=== PATIENT | male | born 1980 | race Hispanic/Latino ===

== ENCOUNTER 2018-03-19 17:55 | Inpatient (IN) | payer OTHER ==
[2018-03-19 18:30] VITALS: BMI 29.1
--- NOTE | 2018-03-19 19:47 | C.PDOC ---
History Of Present Illness 37 y/o male patient presents to the ER for alcohol detox. The patient reports his last drink was this morning and reports "feeling jittery". He admits to having a history of being A-Fib but states he is complaint with Eliquis and hypertension medication. The patient states he believes that drinking makes his medication effective. He denies any chest pain, SOB, dizziness, nausea or drug use. FOR ETOH DETOX. LAST DRINK THIS MORNING. HO AFIB, COMPLIANT W ELIQUIS AND HTN MED "BUT MY DRINKING MAKES THEM INEFFECTIVE". NO CP, SOB, DIZZY, NV. CO " FEELING JITTERY". DENIES OTHER DRUG USE EXAM NONTOXIC HEENT NO FASICULATIONS CV IRREG REG NO TREMOR CALM COOPERATIVE NO ACUTE INTOX Time Seen by Provider: 03/19/18 19:17 Chief Complaint (Nursing): Substance Abuse History Per: Patient History/Exam Limitations: no limitations Modifying Factor(s): Alcohol Recent travel outside of the [place]: No Past Medical History Reviewed: Historical Data, Nursing Documentation, Vital Signs Vital Signs: Last Vital Signs Temp 98.3 F 03/19/18 18:30 Pulse 111 H 03/19/18 18:30 Resp 20 03/19/18 18:30 BP 157/124 H 03/19/18 18:30 Pulse Ox 100 03/19/18 20:44 - Medical History PMH: Atrial Fibrillation, HTN Other Surgeries: Left knee surgery Family History: States: Unknown Family Hx - Social History Hx Alcohol Use: Yes Hx Substance Use: No - Immunization History Hx Tetanus Toxoid Vaccination: No Hx Influenza Vaccination: No Hx Pneumococcal Vaccination: No Review Of Systems Except As Marked, All Systems Reviewed And Found Negative. Constitutional: Negative for: Fever Cardiovascular: Negative for: Chest Pain Respiratory: Negative for: Shortness of Breath Gastrointestinal: Negative for: Nausea Neurological: Negative for: Dizziness Physical Exam - Physical Exam Appears: Well, Non-toxic, Toxic Skin: Normal Color, Warm, Dry Head: Atraumatic, Normacephalic Eye(s): bilateral: Normal Inspection, PERRL, EOMI Ear(s): Bilateral: Normal Oral Mucosa: Moist Neck: Normal ROM Chest: Symmetrical Cardiovascular: Rhythm Irregular (IRREGULARY REGULAR), No Murmur Respiratory: Normal Breath Sounds, No Rales, No Rhonchi, No Wheezing, Other ( NARD) Gastrointestinal/Abdominal: Bowel Sounds, Soft, No Tenderness Extremity: Normal ROM Extremity: Bilateral: Atraumatic, Normal Color And Temperature, Normal ROM Pulses: Left Radial: Normal, Right Radial: Normal Neurological/Psych: Oriented x3, Normal Speech Gait: Steady Other Neurological Findings: Other (calm, cooperative. No acute intoxication) ED Course And Treatment - Laboratory Results Result Diagrams: 03/19/18 20:20 03/19/18 20:20 O2 Sat by Pulse Oximetry: 100 (RA) Pulse Ox Interpretation: Normal Reevaluation Time: 20:43 Reassessment Condition: Improved (SP ATIVAN. PS FEELS BETTER. MED CLEAR FOR DETOX. RECOMMEND MEDICINE CONSULT PRN FOR FURTHER MANAGEMENT OF AFIB. CRISIS NOTIFIED) Medical Decision Making Medical Decision Making: Impression: 37 y/o male feeling jittery, drinking ETOH with medication and requesting alcohol detox Plan: --EKG --Alcohol Serum --CMP --Drug Screen --CBC --Chest X-ray --Ativan 1 mg IV --UA Disposition Counseled Patient/Family Regarding: Studies Performed, Diagnosis - Disposition Disposition: HOSPITALIZED Disposition Time: 20:52 Condition: STABLE Forms: [employer] (Georgian) - POA Present On Arrival: None - Clinical Impression Clinical Impression: Alcohol use disorder - PA / POOL SERVICER / Resident Statement MD/DO has reviewed & agrees with the documentation as recorded. - Scribe Statement The provider has reviewed the documentation as recorded by the Scribe (Mary Jane Hernandez) Decision To Admit - Pt Status Changed To: Hospital Disposition Of: Inpatient - Admit Certification Admit to Inpatient:: After my assessment, the patient will require hospitalization for at least two midnights. This is because of the severity of symptoms shown, intensity of services needed, and/or the medical risk in this patient being treated as an outpatient. - InPatient: Physician Admission Certification: I certify that this patient requires 2 or more midnights of care for the following reason:: SEE NOTE - . Bed Request Type: Detox Admitting Physician: Lucio Bonds Patient Diagnosis: Alcohol use disorder
[2018-03-19 20:31] LABS: URINE BILIRUBIN NEGATIVE (NEGATIVE); URINE BLOOD NEGATIVE (NEGATIVE); URINE CLARITY Clear (Clear); URINE COLOR Straw (YELLOW); URINE GLUCOSE (UA) NORMAL (Normal); URINE LEUKOCYTE ESTERASE NEG Leu/uL (Negative); URINE PROTEIN NEGATIVE (NEGATIVE); URINE UROBILINOGEN NORMAL mg/dL (0.2-1.0)
[2018-03-19 20:34] LABS: BASO % 0.6 % (0.0-2.0); EOS # 0.1 K/uL (0.0-0.7); EOS % 1.4 % (0.0-4.0); HEMOGLOBIN 14.8 g/dL (12.0-18.0); LYMPH # 1.4 K/uL (1.0-4.3); LYMPH % 17.5 % (20.0-40.0); MEAN CELL VOLUME 94.4 fL (80.0-94.0); MEAN CORPUSCULAR HEMOGLOBIN 33.2 pg (27.0-31.0); MEAN CORPUSCULAR HGB CONC 35.2 g/dL (33.0-37.0); MEAN PLATELET VOLUME 7.8 fL (7.2-11.7); MONO # 0.6 K/uL (0.0-0.8); MONO % 7.5 % (0.0-10.0); NEUT # 5.6 K/uL (1.8-7.0); NRBC % 0.1 % (0.0-2.0); RBC 4.46 Mil/uL (4.40-5.90); RED CELL DISTRIBUTION WIDTH 13.7 % (11.5-14.5); WHITE BLOOD COUNT 7.7 K/uL (4.8-10.8)
[2018-03-19 20:40] LABS: ALBUMIN 4.6 g/dL (3.5-5.0); ALT/SGPT 69 U/L (21-72); AST/SGOT 44 U/L (17-59); BLOOD UREA NITROGEN 7 mg/dL (9-20); CALCIUM 10.4 mg/dl (8.6-10.4); GFR AFRICAN-AMERICAN > 60; GFR NON-AFRICAN AMERICAN > 60
[2018-03-19 20:42] LABS: BARBITURATES, UR NEGATIVE (NEGATIVE); BENZODIAZEPINES, UR NEGATIVE (NEGATIVE); OPIATES, UR NEGATIVE (NEGATIVE); PHENCYCLIDINE, UR NEGATIVE (NEGATIVE)
--- NOTE | 2018-03-19 21:17 | PCM.BM ---
Treatment Plan Problems - Problems identified on initial assessmt potiential for autonomic instability related to alcohol withdrawal Date Initiated: 03/19/18 Time Initiated: 21:17 Assessment reference: NA Status: Active Treatment assets and liabiliti Patient Assests: educated, ADL independent, financial stabiity, cognitively intact Patient Liabilities: substance abuse, medical problems - Milieu Protocol Maintain good personal hygiene: daily Encourage regular showers, daily Remind patient to perform daily oral care, daily Assist patient to perform ADL's Maintain personal safety: every shift Educate patient to report safety concerns to staff, every shift Monitor environment for contraband/sharps Medication safety: Monitor for expected outcome, potential side effects: every shift, Assess barriers to learning: every shift, Assess readiness for medication education: every shift
--- NOTE | 2018-03-20 08:27 | RAD ---
Date of service: 03/19/2018 PROCEDURE: CHEST RADIOGRAPH, 1 VIEW HISTORY: Detox/Psy COMPARISON: None available. FINDINGS: LUNGS: The lungs are well inflated and clear. PLEURA: No pneumothorax or pleural fluid seen. CARDIOVASCULAR: Normal. OSSEOUS STRUCTURES: No significant abnormalities. VISUALIZED UPPER ABDOMEN: Normal. OTHER FINDINGS: None. IMPRESSION: No acute findings.
[2018-03-20] MEDS ORDERED: Ergocalciferol 50,000 Intl Units Cap PO SCH (10:30)
[2018-03-20] MEDS ORDERED: Multiple Vitamins Tab PO SCH (10:30)
--- NOTE | 2018-03-20 11:44 | PCM.PSYCH ---
Initial Psychiatric Evaluation - Initial Psychiatric Evaluation Type of Admission: Voluntary Legal Status: Capacity Chief Complaint (in patient's own words): "I feels tremulous" History of Present Illness and Precipitating Events: HPI: Patient is a 37 year old male employed, currently on medical leave, with 2 young children with history of hypertension, Atrial fibrillation who reports here for detox from alcohol abuse. He states he was on his way to [place] detox in [place], however decided to come here for detox since he has a history of Atrial fibrillation and thought he would need to be medically monitored during his detox. He states he was recently diagnosed with Atrial fibrillation 1 month ago by his PMD and was seen by a ship construction teacher near [place], [place]. He states he has a 20 year history of drinking alcohol, but started drinking heavily about 3 to 4 years ago. He states that he lost his job about 4 years ago , and he gradually began to drink more alcohol regularly. He states he experienced a lot of changes around that time as well including moving from [facility] to [facility], the of his first child. He states he drinks about 0.5 to 1 liter of whiskey and 12 cans of beer daily. His last drink was 2 days ago. He states he feels angry, guilty, nervous but also motivated to change. He denies feeling anxious or depressed. Denies thoughts of harming self or others. Denies feeling paranoid. Denies auditory or visual hallucinations. He denies prior history of seizures from alcohol withdrawal. Admits to feeling slightly tremulous currently. PMH: Hypertension, Atrial fibrillation Social history: Employed at [employer] in [place] ,currently on medical leave. Smokes 5 cigarettes/day, cut down from 1ppd. Drinks 1/2L-1L whiskey, 12 cans of beer daily. History of intermittent marijuana use years ago, not currently using. No other drug use. Family hx: Maternal grandfather, maternal uncle, paternal aunt and paternal uncle: Alcoholism. Denies mental illness. Meds: Bystolic 10mg BID, Eliquis 5mg BID Allergies: NKDA Current Medications: Active Medications Generic Name Dose Route Start Last Admin Trade Name Freq PRN Reason Stop Dose Admin Apixaban 2.5 mg 03/20/18 10:30 03/20/18 11:21 Eliquis PO 2.5 mg BID LYNN Administration Chlordiazepoxide 25 mg 03/20/18 12:00 03/20/18 11:21 Librium PO 03/24/18 11:59 25 mg Q6 LYNN Administration Taper Chlordiazepoxide 25 mg 03/20/18 10:21 Librium PO Q4H PRN Alcohol Withdrawal Clonidine HCl 0.1 mg 03/20/18 10:21 Catapres PO Q4H PRN Symptoms of alcohol withdrawl Ergocalciferol 1 cap 03/20/18 10:30 03/20/18 11:24 Drisdol 50,000 Intl Units Cap PO Not Given QWK LYNN Folic Acid 1 mg 03/20/18 10:30 03/20/18 11:21 Folic Acid PO 1 mg DAILY LYNN Administration Hydroxyzine HCl 25 mg 03/20/18 10:22 Atarax PO Q6 PRN Anxiety Multivitamins 1 tab 03/20/18 10:30 03/20/18 11:20 Hexavitamin PO 1 tab DAILY LYNN Administration Nebivolol 10 mg 03/20/18 10:30 03/20/18 11:21 Bystolic PO 10 mg DAILY LYNN Administration Thiamine HCl 100 mg 03/20/18 10:30 03/20/18 11:21 Vitamin B1 Tab PO 100 mg DAILY LYNN Administration Trazodone HCl 50 mg 03/20/18 10:21 Desyrel PO HS PRN Insomnia Past Psychiatric History - Past Psychiatric History Previous Treatment History: None Pertinent Medical Hx (Current Medical&Sleep Prob, Allergies): Allergies Allergy/AdvReac Type Severity Reaction Status Date / Time No Known Allergies Allergy Verified 03/19/18 18:24 Apixaban [Eliquis] 5 mg PO DAILY 03/19/18 Cholecalciferol (Vitamin D3) [Vitamin D3] 50,000 unit PO BID 03/19/18 Nebivolol [Bystolic] 10 mg PO DAILY 03/19/18 Review of Systems - Psychiatric Psychiatric: absent: Anxiety, Auditory Hallucinations, Depression, Homicidal Ideation, Paranoia, Suicidal Ideation, Visual Hallucinations Mental Status Examination - Personal Presentation Personal Presentation: Looks older than stated age - Affect Affect: Constricted - Motor Activity Additional comments: Tremulous - Reliability in Providing Information Reliability in Providing Information: Fair - Speech Speech: Organized, Relevant, Coherent - Mood Mood: Anxious - Formal Thought Process Formal Thought Process: No Impairment - Hallucinations/Delusions Additional comments: No hallucinations or delusions - Cognitive Functions Orientation: Person, Place, Situation, Time Sensorium: Alert Attention/Concentration: Attentive Judgement: Intact, as evidence by: Insight regarding need for hospitalization Memory: Recent intact, as evidence by: Ability to recall events of the day - Risk Risk: Seizure, Withdrawal, Diminished functioning DSM 5 DX - DSM 5 DSM 5 Diagnosis: Alcohol use disorder, severe Alcohol withdrawal - Recommended/Plan of Treatment Treatment Recommendations and Plan of Treatment: Alcohol use disorder, severe Alcohol withdrawal Eliquis 2.5mg PO BID Librium taper Clonidine 0.1mg PO Q4 PRN Ergocalciferol 1 cap weekly Folic acid 1mg po Multivitamin 1tab PO daily Thiamine 100mg PO daily Atarax 25mg PO Q6 PRN Trazodone 50mg PO HS PRN Case discussed with Dr. Anuj Headley, PGY1
[2018-03-20 14:24] VITALS: BP 159/103; PULSE 97; RESP 20; TEMP 98.6; O2SAT 99
--- NOTE | 2018-03-21 12:56 | CARD ---
APPROVED REPORT Date of service: 03/19/2018 EKG Measurement Heart [id number] <Conclusion> Atrial fibrillation with rapid ventricular response Abnormal ECG
--- NOTE | 2018-03-23 00:21 | PCM.PYCHDC ---
Mental Status Examination - Mental Status Examination Orientation: Person, Place, Situation, Time Memory: Intact Mood: Neutral Affect: Constricted Speech: Soft Attention: WNL Concentration: WNL Association: WNL Fund of Knowledge: WNL Formal Thought Process: No Impairment Description of patient's judgement and insight: partially impaired Psychotic Thoughts and Behaviors: denies any AVH Suicidal Ideation: No Current Homicidal Ideation?: No Discharge Summary - Discharge Note Reason for Hospitalization: HPI: Patient is a 37 year old male employed, currently on medical leave, with 2 young children with history of hypertension, Atrial fibrillation who reports here for detox from alcohol abuse. He states he was on his way to [place] detox in [place], however decided to come here for detox since he has a history of Atrial fibrillation and thought he would need to be medically monitored during his detox. He states he was recently diagnosed with Atrial fibrillation 1 month ago by his PMD and was seen by a wash tub machine operator near [place], [place]. He states he has a 20 year history of drinking alcohol, but started drinking heavily about 3 to 4 years ago. He states that he lost his job about 4 years ago , and he gradually began to drink more alcohol regularly. He states he experienced a lot of changes around that time as well including moving from [facility] to [facility], the of his first child. He states he drinks about 0.5 to 1 liter of whiskey and 12 cans of beer daily. His last drink was 2 days ago. He states he feels angry, guilty, nervous but also motivated to change. He denies feeling anxious or depressed. Denies thoughts of harming self or others. Denies feeling paranoid. Denies auditory or visual hallucinations. He denies prior history of seizures from alcohol withdrawal. Admits to feeling slightly tremulous currently. PMH: Hypertension, Atrial fibrillation Social history: Employed at [employer] in [place] ,currently on medical leave. Smokes 5 cigarettes/day, cut down from 1ppd. Drinks 1/2L-1L whiskey, 12 cans of beer daily. History of intermittent marijuana use years ago, not currently using. No other drug use. Family hx: Maternal grandfather, maternal uncle, paternal aunt and paternal uncle: Alcoholism. Denies mental illness. Meds: Bystolic 10mg BID, Eliquis 5mg BID Allergies: NKDA Consultations:: List each consultation separately and include: 1. Reason for request. 2. Findings. 3. Follow-up Summary of Hospital Course include:: 1. Description of specific treatment plan utilized for patients during their course of treatmen. 2. Summarize the time- course for resolution of acute symptoms and/or regressed behaviors. 3. Describe issues identified and worked on during hospitalization. 4. Describe medication utilized. 5. Describe medical problems identified and treated. 6. Reassessment of suicide risk - Final Diagnosis (DSM 5) Condition upon Discharge: STABLE DSM 5: Alcohol use disorder, severe Alcohol withdrawal Disposition: AGAINST MEDICAL ADVICE
== END 2018-03-20 14:50 | disposition left against medical advice (07) | DRG 894 ==
LOC: C.ER 17:55 → C.7D 20:53
PROVIDERS: ADMIT Psychiatry & Neurology Psychiatry; ATTEND Psychiatry & Neurology Psychiatry
DX: F10.239 Alcohol dependence with withdrawal, unspecified (principal); F17.210 Nicotine dependence, cigarettes, uncomplicated; I10 Essential (primary) hypertension; I48.91 Unspecified atrial fibrillation